=== PATIENT | female | born 1970 | race Caucasian/White ===

== ENCOUNTER 2017-11-05 15:15 | Emergency (ER) | payer OTHER ==
[~2017-11-05] VITALS: Ht 165.1 cm; Wt 85.7 kg
[2017-11-05] MEDS ORDERED: TRAZ100 PO (16:40)
[2017-11-05] MEDS ORDERED: GABA400 PO (16:40)
[2017-11-05] MEDS ORDERED: CYCL10 PO (16:41)
[2017-11-05] MEDS ORDERED: Abilify2 MG PO (16:41)
[2017-11-05] MEDS ORDERED: BUPR100 PO (16:41)
[2017-11-05] MEDS ORDERED: SUBOXONE 8 MG-1 EACH SL (16:42)
== END 2017-11-05 16:57 | disposition home or self-care (01) ==
LOC: ER 15:15
DX: S91.332A Puncture wound without foreign body, left foot, initial encounter (principal); W22.8XXA Striking against or struck by other objects, initial encounter; Z79.899 Other long term (current) drug therapy; F32.9 Major depressive disorder, single episode, unspecified; F17.200 Nicotine dependence, unspecified, uncomplicated
CPT/HCPCS: 90471; 90714; 99283